=== PATIENT | female | born 1955 | race Caucasian/White ===

== ENCOUNTER 2017-10-14 06:16 | Inpatient (IN) | payer BC ==
[~2017-10-14] VITALS: Ht 167.6 cm; Wt 90.3 kg
[~2017-10-14 06:16] MED LIST: BENTYL10 MG PO; CIPRO500 MG PO; FLAGYL250 MG PO; ZESTORETIC 10-1 EAC1 PO
[2017-10-14 08:09] LABS: BASOPHILS # (AUTO) 0.1 (0.0-0.1); BASOPHILS % 0.7 % (0.0-1.0); EOSINOPHILS # (AUTO) 0.1 (0.0-0.4); EOSINOPHILS % 1.1 % (0.0-6.0); HEMATOCRIT 42.8 % (34.2-44.1); HEMOGLOBIN 13.7 g/dL (12.0-16.0); LYMPHOCYTES # (AUTO) 2.5 (1.0-3.2); LYMPHOCYTES % 21.9 % (18.0-39.1); MEAN CORPUSCULAR HEMOGLOBIN 26.8 pg (28-32); MEAN CORPUSCULAR VOLUME 83.8 fL (81-99); MONOCYTES # (AUTO) 0.7 (0.2-0.8); MONOCYTES % 5.8 % (4.4-11.3); NEUTROPHILS # (AUTO) 8.1 (2.1-6.9); NEUTROPHILS % 70.1 % (38.7-80.0); PLATELET COUNT 347 x10e3/uL (140-360); RED BLOOD COUNT 5.11 x10e6/uL (3.6-5.1); RED CELL DISTRIBUTION WIDTH 13.4 % (11.7-14.4)
[2017-10-14 08:26] LABS: ANION GAP 18.9 mmol/L (8-16); BLOOD UREA NITROGEN 20 mg/dL (7-26); BUN/CREATININE RATIO 22 (6-25); CALCIUM 9.5 mg/dL (8.4-10.2); CARBON DIOXIDE 23 mmol/L (22-29); CHLORIDE 103 mmol/L (98-107); EST GLOMERULAR FILTRATION RATE > 60 ML/MIN (60-); GLUCOSE 123 mg/dL (74-118); POTASSIUM 3.9 mmol/L (3.5-5.1); SODIUM 141 mmol/L (136-145)
[2017-10-14] MEDS ORDERED: MINERAL OIL STERILE 10ML VIAL ONE (08:57)
[2017-10-14] MEDS ORDERED: BUPIVACAINE 0.25% 30ML SDV INJ ONE (08:57)
[2017-10-14] MEDS ORDERED: CEFOXITIN 1GM/ DEXTROSE 50ML 50 ML IV ONE (09:36)
[2017-10-14] MEDS: DEXTROSE 5%/LACTATED RINGERS 1,000 ML IV SCH (13:18)
[2017-10-14] MEDS ORDERED: HYDROMORPHONE 2MG/ML INJ IV PRN (13:30)
[2017-10-14] MEDS ORDERED: HYDROMORPHONE 1MG/1ML INJ IV PRN (13:30)
[2017-10-14] MEDS ORDERED: MORPHINE SULFATE 5 MG/ML VIAL ONE (13:48)
[2017-10-14] MEDS ORDERED: PROMETHAZINE HCL (IM) 25 MG/ML VIAL ONE (13:48)
[2017-10-14] MEDS: SODIUM CHLORIDE 0.9% 250ML IRRIG IR SCH ×3 (14:57→21:30)
[2017-10-14 15:04] VITALS: BP 132/70
[2017-10-14] MEDS: PANTOPRAZOLE 40 MG 10ML VIAL IV SCH (15:24)
[2017-10-14] MEDS: ACETAMINOPHEN 1000 MG/100 ML IV PRN (15:24)
--- NOTE | 2017-10-14 15:56 | Operative Report ---
DATE OF PROCEDURE: October 14, 2017 PREOPERATIVE DIAGNOSIS: Recurrent sigmoid diverticulitis. POSTOPERATIVE DIAGNOSIS: Recurrent sigmoid diverticulitis. OPERATION PERFORMED: Laparoscopic left colon resection with mobilization of the splenic flexure and low anterior anastomosis. CLERK GUIDE: Dr. Abdifatah Hendricks and EMIL Gregg. ANESTHESIA: General. COMPLICATIONS: None. ESTIMATED BLOOD LOSS: 75 mL. DESCRIPTION OF PROCEDURE: With patient lying in bed in the supine position with the left leg up in yellow fin stirrups, the abdomen and perineum were prepped with Betadine solution and draped in the usual manner. A Veress needle was introduced into the umbilicus and pneumoperitoneum was established without any difficulty. An 11 mm trocar was placed into the umbilicus. Under direct vision, 5 mm trocars were placed in the left lower quadrant, the left upper quadrant and right lower quadrant. Video laparoscopy at this point revealed the sigmoid colon to be stuck laterally at the site of the previous bouts of diverticulitis that the patient has had. The rest of the abdominal exploration was otherwise within normal limits. The left colon was then off of the lateral gutter and the colon was then slowly and carefully mobilized medially. The splenic flexure was brought down with the LigaSure device, all the way down to the mid transverse colon and the left colon was totally mobilized without any difficulty and then it was mobilized all the way down to the rectosigmoid junction. At this point, a small incision was made in the left lower quadrant and hand-assist device was placed in the left lower quadrant. The colon having been previously mobilized was then divided at the level of the descending colon with an application of GE 75 stapler. The mesentery of the colon was finished being divided with the LigaSure device all the way down to the rectosigmoid junction and the rectosigmoid junction was then divided with the stapler. The specimen was sent for pathological examination. After this was done, we had good mobilization of the proximal and distal colon and the 2 ends reached without any difficulty. The proximal colon was then opened and a 29 EEA anvil was placed without any difficulty and secured in place with a purse-string suture of 2-0 Prolene. At this point, we went from below and the anus was dilated up to 29 EEA dilator. The 29 EEA was then placed transanally and brought out through the anterior aspect of the rectosigmoid junction. The stapler and anvil were then joined and closed and the stapler was fired and 2 perfect doughnuts were obtained and gloves and gowns and instruments were changed. The abdomen was then irrigated. Hemostasis was ascertained. The anastomosis was then reinforced with some interrupted sutures of 3-0 silk taking all the tension off of the colon that had been well mobilized. Hemostasis was ascertained. Laparoscopy was then again performed and everything was dry. All of the excess fluid was aspirated and the all the trocars were removed. The midline fascia at the umbilicus was closed with a [id number] of 0 Vicryl. There was a small umbilical hernia that was repaired with the closure. Subcutaneous tissue was approximated with 3-0 Vicryl and the skin was closed with subcuticular 5-0 Vicryl. The other puncture wounds was similarly closed with 5-0 Vicryl. The peritoneum of the left lower quadrant incision was then closed with a running suture of 0 Vicryl. The anterior fascia was closed with a running suture of 0 Vicryl and all layers were infiltrated on the way out with solution of 1/4 percent Marcaine. Subcutaneous tissue was approximated with 2-0 chromic and the skin was closed with clips. Dressings were applied. The sponge, lap and needle count was correct. Patient tolerated the procedure well and returned to the recovery room in stable condition. Job#: [id number]
[2017-10-14 16:27] VITALS: BP 132/70
[2017-10-14] MEDS ORDERED: MORPHINE SULFATE 2 MG/ML SYR ONE ×2 (16:30→20:05)
[2017-10-14] MEDS: ONDANSETRON HCL INJ 2 MG/ML VIAL IV PRN ×2 (16:33→20:15)
[2017-10-14] MEDS: MORPHINE SULFATE 4 MG/ML SYR IV PRN ×2 (16:33→20:14)
[2017-10-14] MEDS: CEFOXITIN 1GM/ DEXTROSE 50ML 50 ML IV SCH (17:48)
[2017-10-14] MEDS ORDERED: PHENYLEPHRINE HCL 1% 10 MG/ML VIAL ONE (18:11)
[2017-10-14] MEDS ORDERED: EPHEDRINE SULFATE INJ 50 MG/10 ML SYR ONE (18:11)
[2017-10-14] MEDS ORDERED: LIDOCAINE HCL 2% LOCAL INJ 5 ML SDV VIAL INJ ONE (18:11)
[2017-10-14] MEDS ORDERED: PROPOFOL IV EMULSION 10 MG/ML 20 ML VIAL ONE (18:11)
[2017-10-14] MEDS ORDERED: GLYCOPYRROLATE INJ 1MG/ 5 ML SYR ONE (18:11)
[2017-10-14] MEDS ORDERED: DEXAMETHASONE SOD PHOS INJ 4 MG/ML VIAL ONE (18:11)
[2017-10-14] MEDS ORDERED: NEOSTIGMINE 5 MG/5ML SYR ONE (18:11)
[2017-10-14] MEDS ORDERED: KETOROLAC TROMETHAMINE 30 MG/ML VIAL ONE (18:11)
[2017-10-14] MEDS ORDERED: ONDANSETRON HCL INJ 2 MG/ML VIAL ONE (18:11)
[2017-10-14] MEDS ORDERED: SEVOFLURANE INHAL SOLN 250 ML PEN BTL ONE (18:11)
[2017-10-14] MEDS ORDERED: ACETAMINOPHEN 1000 MG/100 ML IV ONE (18:11)
[2017-10-14] MEDS ORDERED: FENTANYL CITRATE/PF 100MCG/2 ML INJ ONE (18:18)
[2017-10-14] MEDS ORDERED: MIDAZOLAM HCL 2 MG/2 ML VIAL ONE (18:18)
[2017-10-14 20:00] VITALS: BP 117/60
[2017-10-14 20:23] VITALS: BP 117/60
[2017-10-15] VITALS (8 sets, daily range): BP systolic 105–120; BP diastolic 58–70
[2017-10-15] MEDS ORDERED: MORPHINE SULFATE 2 MG/ML SYR ONE ×5 (00:09→22:37)
[2017-10-15] MEDS: ACETAMINOPHEN 1000 MG/100 ML IV PRN (00:16)
[2017-10-15] MEDS: CEFOXITIN 1GM/ DEXTROSE 50ML 50 ML IV SCH (00:42)
[2017-10-15] MEDS: DEXTROSE 5%/LACTATED RINGERS 1,000 ML IV SCH ×3 (00:45→20:34)
[2017-10-15] MEDS: SODIUM CHLORIDE 0.9% 250ML IRRIG IR SCH ×6 (01:43→21:30)
[2017-10-15] MEDS: MORPHINE SULFATE 4 MG/ML SYR IV PRN ×5 (06:20→22:40)
[2017-10-15 06:39] LABS: BASOPHILS % 0.1 % (0.0-1.0); HEMATOCRIT 32.8 % (34.2-44.1); HEMOGLOBIN 10.7 g/dL (12.0-16.0); LYMPHOCYTES # (AUTO) 1.8 (1.0-3.2); LYMPHOCYTES % 11.4 % (18.0-39.1); MEAN CORPUSCULAR HEMOGLOBIN 27.5 pg (28-32); MEAN CORPUSCULAR HGB CONC 32.6 g/dL (31-35); MEAN CORPUSCULAR VOLUME 84.3 fL (81-99); MONOCYTES # (AUTO) 1.1 (0.2-0.8); MONOCYTES % 7.2 % (4.4-11.3); NEUTROPHILS # (AUTO) 12.5 (2.1-6.9); NEUTROPHILS % 80.8 % (38.7-80.0); PLATELET COUNT 310 x10e3/uL (140-360); RED BLOOD COUNT 3.89 x10e6/uL (3.6-5.1); RED CELL DISTRIBUTION WIDTH 13.7 % (11.7-14.4)
[2017-10-15 07:02] LABS: ALANINE AMINOTRANSFERASE 24 IU/L (0-55); ALBUMIN 3.3 g/dL (3.5-5.0); ALBUMIN/GLOBULIN RATIO 1.2 (0.8-2.0); ALKALINE PHOSPHATASE 22 IU/L (40-150); ANION GAP 14.1 mmol/L (8-16); BLOOD UREA NITROGEN 22 mg/dL (7-26); BUN/CREATININE RATIO 26 (6-25); CALCIUM 8.1 mg/dL (8.4-10.2); CARBON DIOXIDE 24 mmol/L (22-29); CHLORIDE 104 mmol/L (98-107); CREATININE, SERUM 0.86 mg/dL (0.57-1.11); EST GLOMERULAR FILTRATION RATE > 60 ML/MIN (60-); GLUCOSE 157 mg/dL (74-118); POTASSIUM 4.1 mmol/L (3.5-5.1); SODIUM 138 mmol/L (136-145)
[2017-10-15] MEDS: ONDANSETRON HCL INJ 2 MG/ML VIAL IV PRN ×3 (10:21→22:40)
[2017-10-15] MEDS ORDERED: CHLORASEPTIC SPRAY 177 ML BTL MM PRN (10:45)
[2017-10-15] MEDS: PANTOPRAZOLE 40 MG 10ML VIAL IV SCH (14:04)
[2017-10-15] MEDS ORDERED: ACETAMINOPHEN 1000 MG/100 ML IV PRN (21:45)
[2017-10-16] VITALS (8 sets, daily range): BP systolic 120–150; BP diastolic 62–80
[2017-10-16] MEDS: SODIUM CHLORIDE 0.9% 250ML IRRIG IR SCH ×6 (01:51→21:30)
[2017-10-16] MEDS ORDERED: MORPHINE SULFATE 2 MG/ML SYR ONE ×5 (02:56→21:00)
[2017-10-16] MEDS: MORPHINE SULFATE 4 MG/ML SYR IV PRN ×5 (02:57→21:28)
[2017-10-16] MEDS: ONDANSETRON HCL INJ 2 MG/ML VIAL IV PRN ×3 (02:57→21:28)
[2017-10-16] MEDS: DEXTROSE 5%/LACTATED RINGERS 1,000 ML IV SCH ×2 (06:38→13:42)
[2017-10-16 06:45] LABS: BASOPHILS # (AUTO) 0.1 (0.0-0.1); BASOPHILS % 0.4 % (0.0-1.0); EOSINOPHILS # (AUTO) 0.1 (0.0-0.4); EOSINOPHILS % 0.6 % (0.0-6.0); HEMATOCRIT 32.9 % (34.2-44.1); HEMOGLOBIN 10.2 g/dL (12.0-16.0); LYMPHOCYTES # (AUTO) 3.4 (1.0-3.2); MEAN CORPUSCULAR HEMOGLOBIN 27.2 pg (28-32); MEAN CORPUSCULAR VOLUME 87.7 fL (81-99); MONOCYTES % 7.2 % (4.4-11.3); NEUTROPHILS # (AUTO) 9.5 (2.1-6.9); NEUTROPHILS % 67.3 % (38.7-80.0); PLATELET COUNT 261 x10e3/uL (140-360); RED BLOOD COUNT 3.75 x10e6/uL (3.6-5.1); RED CELL DISTRIBUTION WIDTH 13.5 % (11.7-14.4)
[2017-10-16 07:22] LABS: ALANINE AMINOTRANSFERASE 22 IU/L (0-55); ALBUMIN 3.1 g/dL (3.5-5.0); ALKALINE PHOSPHATASE 20 IU/L (40-150); ANION GAP 11.8 mmol/L (8-16); BLOOD UREA NITROGEN 13 mg/dL (7-26); BUN/CREATININE RATIO 17 (6-25); CARBON DIOXIDE 26 mmol/L (22-29); CHLORIDE 103 mmol/L (98-107); CREATININE, SERUM 0.75 mg/dL (0.57-1.11); EST GLOMERULAR FILTRATION RATE > 60 ML/MIN (60-); GLUCOSE 117 mg/dL (74-118); POTASSIUM 3.8 mmol/L (3.5-5.1); SODIUM 137 mmol/L (136-145)
[2017-10-16] MEDS: PANTOPRAZOLE 40 MG 10ML VIAL IV SCH (13:42)
[2017-10-16] MEDS: BISACODYL 10 MG SUPP PR SCH (21:27)
[2017-10-17] VITALS (7 sets, daily range): BP systolic 128–157; BP diastolic 70–82
[2017-10-17] MEDS: DEXTROSE 5%/LACTATED RINGERS 1,000 ML IV SCH ×3 (01:18→21:18)
[2017-10-17] MEDS: SODIUM CHLORIDE 0.9% 250ML IRRIG IR SCH (01:30)
[2017-10-17] MEDS ORDERED: MORPHINE SULFATE 2 MG/ML SYR ONE (05:18)
[2017-10-17] MEDS: ONDANSETRON HCL INJ 2 MG/ML VIAL IV PRN ×2 (05:45→11:55)
[2017-10-17] MEDS: MORPHINE SULFATE 4 MG/ML SYR IV PRN (05:45)
[2017-10-17 06:21] LABS: BASOPHILS # (AUTO) 0.1 (0.0-0.1); BASOPHILS % 0.5 % (0.0-1.0); EOSINOPHILS # (AUTO) 0.2 (0.0-0.4); EOSINOPHILS % 1.5 % (0.0-6.0); HEMATOCRIT 31.8 % (34.2-44.1); LYMPHOCYTES # (AUTO) 2.3 (1.0-3.2); LYMPHOCYTES % 19.5 % (18.0-39.1); MEAN CORPUSCULAR HGB CONC 31.4 g/dL (31-35); MEAN CORPUSCULAR VOLUME 85.9 fL (81-99); MONOCYTES # (AUTO) 0.8 (0.2-0.8); MONOCYTES % 6.6 % (4.4-11.3); NEUTROPHILS # (AUTO) 8.3 (2.1-6.9); NEUTROPHILS % 71.3 % (38.7-80.0); PLATELET COUNT 259 x10e3/uL (140-360); RED CELL DISTRIBUTION WIDTH 13.2 % (11.7-14.4)
[2017-10-17 06:47] LABS: ALANINE AMINOTRANSFERASE 16 IU/L (0-55); ALBUMIN 3.1 g/dL (3.5-5.0); ALKALINE PHOSPHATASE 22 IU/L (40-150); ANION GAP 11.5 mmol/L (8-16); BLOOD UREA NITROGEN 9 mg/dL (7-26); BUN/CREATININE RATIO 12 (6-25); CALCIUM 8.4 mg/dL (8.4-10.2); CARBON DIOXIDE 24 mmol/L (22-29); CHLORIDE 106 mmol/L (98-107); CREATININE, SERUM 0.74 mg/dL (0.57-1.11); EST GLOMERULAR FILTRATION RATE > 60 ML/MIN (60-); GLUCOSE 115 mg/dL (74-118); POTASSIUM 3.5 mmol/L (3.5-5.1); SODIUM 138 mmol/L (136-145)
[2017-10-17] MEDS: BISACODYL 10 MG SUPP PR SCH (08:00)
[2017-10-17] MEDS ORDERED: MORPHINE SULFATE 5 MG/ML VIAL IV PRN (11:45)
[2017-10-17] MEDS: PANTOPRAZOLE 40 MG 10ML VIAL IV SCH (14:17)
[2017-10-18] VITALS (8 sets, daily range): BP systolic 130–156; BP diastolic 65–88
[2017-10-18] MEDS: DEXTROSE 5%/LACTATED RINGERS 1,000 ML IV SCH ×2 (11:29→17:52)
[2017-10-18] MEDS: PANTOPRAZOLE 40 MG 10ML VIAL IV SCH (14:25)
[2017-10-18] MEDS: ONDANSETRON HCL INJ 2 MG/ML VIAL IV PRN (16:46)
[2017-10-18] MEDS ORDERED: ACETAMINOPHEN/CODEINE 300MG - 30MG TAB PO PRN (17:30)
[2017-10-19] VITALS (8 sets, daily range): BP systolic 129–142; BP diastolic 61–82
[2017-10-19] MEDS: DEXTROSE 5%/LACTATED RINGERS 1,000 ML IV SCH ×2 (03:59→13:18)
[2017-10-19] MEDS: HYDROCHLOROTHIAZIDE 25 MG TAB PO SCH (08:33)
[2017-10-19] MEDS: LISINOPRIL 10 MG TAB PO SCH (08:33)
[2017-10-19] MEDS ORDERED: HYDRALAZINE HCL 25 MG TAB PO SCH (09:00)
[2017-10-19] MEDS ORDERED: LISINOPRIL 10 MG TAB PO SCH (09:00)
[2017-10-19] MEDS: PANTOPRAZOLE 40 MG 10ML VIAL IV SCH (13:25)
[2017-10-20 00:35] VITALS: BP 121/58
[2017-10-20] MEDS: DEXTROSE 5%/LACTATED RINGERS 1,000 ML IV SCH (01:44)
[2017-10-20 04:00] VITALS: BP 118/57
[2017-10-20 07:40] VITALS: BP 118/57
[2017-10-20] MEDS: HYDROCHLOROTHIAZIDE 25 MG TAB PO SCH (07:53)
[2017-10-20] MEDS: LISINOPRIL 10 MG TAB PO SCH (07:54)
== END 2017-10-20 11:46 | disposition home or self-care (01) | DRG 331 ==
LOC: OR 06:16 → MED/SURG 13:33
PROVIDERS: ADMIT Surgery; ATTEND Surgery
PROC: 0DTG4ZZ Resection of Left Large Intestine, Percutaneous Endoscopic Approach (ICD-10-PCS; principal; 2017-10-14 09:40)
DX: K57.32 Diverticulitis of large intestine without perforation or abscess without bleeding (principal); I10 Essential (primary) hypertension
CPT/HCPCS: 36415; 80048; 80053; 85025; 88307; C1766; J1100; J1885; J2001; J2250; J2270; J2370; J2405; J2550; J7120